=== PATIENT | male | born 1970 | race African-American/Black ===

== ENCOUNTER 2018-10-23 01:31 | Emergency (ER) | payer OTHER ==
[~2018-10-23] VITALS: Ht 180.3 cm; Wt 94.0 kg
[2018-10-23] MEDS ORDERED: TETANUS, DIPHTHERIA, PERTUSSIS VAC/PF 0.5ML (>7YR OLD) IM ONE (03:45)
[2018-10-23] MEDS ORDERED: BACITRACIN ZINC OINT UDPKT TOP ONE (03:45)
[2018-10-23] MEDS ORDERED: LIDOCAINE HCL/PF 1% 10 MG/ML 5ML VIAL IJ ONE (03:45)
[2018-10-23 06:02] VITALS: BP 127/74
== END 2018-10-23 06:03 | disposition home or self-care (01) ==
LOC: ER 01:31
DX: S01.01XA Laceration without foreign body of scalp, initial encounter (principal); V48.4XXA Person boarding or alighting a car injured in noncollision transport accident, initial encounter; Y93.89 Activity, other specified; Y92.89 Other specified places as the place of occurrence of the external cause; Z23 Encounter for immunization
CPT/HCPCS: 12002; 90471; 90715; 99283; J3490

== ENCOUNTER 2018-11-11 20:29 | Emergency (ER) | payer OTHER ==
[~2018-11-11] VITALS: Ht 182.9 cm; Wt 98.0 kg
[2018-11-11 21:20] VITALS: BP 128/70
== END 2018-11-11 23:03 | disposition home or self-care (01) ==
LOC: ER 20:29
DX: Z48.02 Encounter for removal of sutures (principal)
CPT/HCPCS: 99281

== ENCOUNTER 2022-10-19 19:05 | Emergency (ER) | payer OTHER ==
[~2022-10-19] VITALS: Ht 182.9 cm; Wt 98.0 kg
[2022-10-19 19:07] VITALS: O2SAT 98
[2022-10-19] MEDS ORDERED: IBUP-2028 MT (19:41)
[2022-10-19] MEDS ORDERED: KETOROLAC 60MG/2ML VIAL IM ONE (19:45)
[2022-10-19 20:32] VITALS: BP 122/71
[2022-10-19 20:40] VITALS: PULSE 70; RESP 18; TEMP 98
== END 2022-10-19 21:18 | disposition home or self-care (01) ==
LOC: ER 19:05
DX: M79.10 Myalgia, unspecified site (principal); V49.49XA Driver injured in collision with other motor vehicles in traffic accident, initial encounter; Y93.89 Activity, other specified; Y92.89 Other specified places as the place of occurrence of the external cause; Y99.8 Other external cause status
CPT/HCPCS: 96372; 99283; J1885; Z7610